=== PATIENT | female | born 1965 | race African-American/Black ===

== ENCOUNTER 2019-01-12 01:09 | Emergency (ER) | payer MEDICAID ==
[~2019-01-12] VITALS: Ht 157.5 cm; Wt 109.0 kg
[2019-01-12] MEDS ORDERED: KETOROLAC 30MG/ML VIAL IM ONE (06:45)
[2019-01-12 07:45] VITALS: BP 153/70
== END 2019-01-12 08:15 | disposition home or self-care (01) ==
LOC: ER 01:09
DX: S76.911A Strain of unspecified muscles, fascia and tendons at thigh level, right thigh, initial encounter (principal); M16.11 Unilateral primary osteoarthritis, right hip; I10 Essential (primary) hypertension; X58.XXXA Exposure to other specified factors, initial encounter; Y93.9 Activity, unspecified; Y92.9 Unspecified place or not applicable
CPT/HCPCS: 73502; 73552; 96372; 99283; J1885